=== PATIENT | female | born 1955 | race Caucasian/White ===

== ENCOUNTER 2017-09-18 09:33 | Observation (INO) | payer OTHER, BC ==
--- NOTE | 2017-09-18 11:20 | PDOC ---
History of Present Illness - General Chief Complaint: Injury Stated Complaint: HEAD INJURY Time Seen by Provider: 09/18/17 10:07 History Source: Patient Exam Limitations: No Limitations - History of Present Illness Initial Comments: 09/18/17 11:15 CHIEF COMPLAINT: Mechanical fall down 3 steps, hitting left side of head HISTORY OF PRESENT ILLNESS: Patient is a 62-year-old female, history of high blood pressure and MS in remission, high cholesterol reports while at work today was walking carrying a few large objects and fell down approximately 2 steps hitting the left side of her posterior head. Does Not remember how she fell reports that she does not think she lost consciousness denies any dizziness , is shaking but states that the whole entire incident was overwhelming. Patient is ambulatory to the ER, was a palpable raised area to the left occipital area with no open abrasions or lacerations. No bruising. Denies any neck pain. No respiratory difficulty. No neurosensory deficits. MEDS:[ See medication list] ALLERGIES: [Sulfa REVIEW OF SYSTEMS: GENERAL/CONSTITUTIONAL: Awake alert and oriented HEAD, EYES, EARS, NOSE AND THROAT: No change in vision. No facial edema, no bruising. NO active bleeding. Nares intact. Palpable raised area, with no fluctuance or step-off to left occipital. RESPIRATORY: No cough, wheezing, or hemoptysis. CARDIAC: Denies chest pain, no shortness of breathe. MUSCULOSKELETAL: No spinal point tenderness, Good ROM to all four extremeties. NO CVA tenderness. [No] lateral neck pain. GI/: Denies abdominal pain, no nausea or vomiting, no bloody stool, no Hematuria. SKIN : No erythema or bruising noted. No abrasion or lacerations. NEUROLOGIC: No loss of consciousness, no numbness or tingling. PHYSICAL EXAM: GENERAL: Awake and alert and oriented x3. EYES: The pupils are equal, round, and reactive to light, with clear, conjunctiva. Good extraocular movement. No nystagmus NOSE: No nasal trauma . Midface stable HEAD: Palpable non bruised raised area to left occipital area with no fluctuance , no step offs. MOUTH: Teeth intact. EARS: The ear canals and tympanic membranes are normal without trauma. No drainage. NECK: No Lower cervical C-spine tenderness, no pain with chin to chest. CHEST: The lungs are clear without crackles, or wheezes. No subcutaneous emphysema. No crepitus. HEART: Heart is regular rhythm, with normal S1 and S2, no murmurs. ABDOMEN: The abdomen is soft and nontender with normal bowel sounds. There is no guarding or rebound. MUSCULOSKELETAL: No spinal point tenderness. No bruising or erythema. Pelvis stable. RECTAL: Patient refused. EXTREMITIES: Extremities are normal. No visible traumatic injury. NEUROLOGICAL:Mental status: The patient is oriented x3. No Generalized headache , Romberg [-] Cranial nerves: Cranial nerves II through XII are intact Motor: The upper extremities are 5 over 5 in all muscle groups. The lower extremities are 5 over 5 in all muscle groups. Sensation: Sensation is intact to light touch throughout. Cerebellar: Incfbl-[id number] is normal in both upper extremities. Heel-knee- sommers is normal in both lower extremities. Reflexes: 2+ and symmetric in the upper and lower extremities. Gait: Normal. Heel and toe walking are normal. Tandem gait is normal. SKIN: Without erythema or bruising. No abrasions or lacerations. Raised area to the left occipital 1 09/18/17 12:40 Past History - Past Medical History Allergies/Adverse Reactions: Allergies Allergy/AdvReac Type Severity Reaction Status Date / Time Sulfa (Sulfonamide Allergy Verified 09/18/17 09:42 Antibiotics) Home Medications: Ambulatory Orders Citalopram Hydrobromide [Celexa -] 10 mg PO DAILY 08/03/16 Ezetimibe [Zetia] 10 mg PO DAILY 08/03/16 Hydrochlorothiazide [Hctz -] 12.5 mg PO DAILY 08/03/16 Labetalol HCl 100 mg PO DAILY 08/03/16 Rosuvastatin Calcium [Crestor] 10 mg PO DAILY 08/03/16 Cancer: Yes (H/O OVARIAN) COPD: No HTN: Yes Hypercholesterolemia: Yes - Surgical History Abdominal Surgery: Yes (OVARIAN CA DEBULKING SX, HERNIA REPAIR) Appendectomy: Yes Lung Surgery: Yes (GRANULOMA) - Suicide/Smoking/Psychosocial Hx Smoking History: Never smoked Hx Alcohol Use: No Drug/Substance Use Hx: No Substance Use Type: None *Physical Exam - Vital Signs Last Vital Signs Temp Pulse Resp BP Pulse Ox 98.3 F 76 18 146/79 97 09/18/17 09:37 09/18/17 09:37 09/18/17 09:37 09/18/17 09:37 09/18/17 09:37 ED Treatment Course - RADIOLOGY Radiology Studies Ordered: Category Date Time Status CERVICAL SPINE CT W/O CONTR [CT] Stat CT Scan 09/18/17 11:[address] WITHOUT CONTRAST [CT] Stat CT Scan 09/18/17 11:00 Taken Medical Decision Making - Medical Decision Making 09/18/17 11:19 A/P: Patient here for evaluation status post fall palpable raised area to left occipital area, patient with no other injury no other complaints no bruising, lacerations, erythema or edema. No open areas. Will send patient for CT scan of head based upon mechanism and clinical correlation. 09/18/17 12:42 CT scan demonstrated a subarachnoid hemorrhage, spoke to Dr. Ornelas, patient to be admitted. Patients primary care doctor does not have privileges at [facility]. Patient to be admitted, transferred to [facility]. Saline lock, CBC, CMP, PT, PTT, INR ordered. Tylenol ordered. 09/18/17 13:38 Patient admitted to inpatient services under Dr. Polk consult for Dr. Peterson, patient admitted to [facility] under for admission. *DC/Admit/Observation/Transfer Diagnosis at time of Disposition: Fall (on) (from) other stairs and steps, initial encounter Traumatic subarachnoid hemorrhage Qualifiers: Encounter type: initial encounter - Discharge Dispostion Admit: Yes - Referrals Referrals: Albino Zurita [Primary Care Provider] - - Patient Instructions - Post Discharge Activity
[2017-09-18] MEDS ORDERED: ACETAMINOPHEN 500 MG TABLET (FP) PO ONE (12:49)
[2017-09-18] MEDS ORDERED: ACETAMINOPHEN 500 MG TABLET (FP) ONE (13:10)
[2017-09-18 14:10] LABS: BASOPHIL 0.6 % (0-2.0); EOSINOPHIL 0.5 % (0-4.5); MCH 31.2 pg (25.7-33.7); MCHC 33.8 g/dl (32.0-36.0); MEAN CELL VOLUME 92.2 fl (80-96); MEAN PLT VOLUME 6.7 fl (7.5-11.1); NEUTROPHILS 86.8 % (42.8-82.8); PLATELET COUNT 252 K/MM3 (134-434); WHITE BLOOD COUNT 11.3 K/mm3 (4.0-10.0)
[2017-09-18 14:39] LABS: INR 1.04 (0.82-1.09); PROTHROMBIN TIME (PATIENT) 11.7 SEC (9.98-11.88)
[2017-09-18 14:42] LABS: ACTIVATED PTT 28.3 SECONDS (26.9-34.4)
[2017-09-18 14:46] LABS: ALBUMIN 3.4 g/dl (3.4-5.0); ANION GAP 6 (8-16); CALCIUM 8.7 mg/dL (8.5-10.1); CO2 27 mmol/L (21-32); GLUCOSE,RANDOM 124 mg/dL (74-106)
[2017-09-18 14:49] LABS: ALK PHOS 98 U/L (45-117); BILIRUBIN,TOTAL 0.4 mg/dL (0.2-1.0); CREATININE 1.3 mg/dL (0.55-1.02); SGOT/AST 19 U/L (15-37); SGPT/ALT 22 U/L (12-78); TOT PROT 6.7 g/dl (6.4-8.2)
--- NOTE | 2017-09-18 15:39 | PDOC ---
*Physical Exam - Vital Signs Last Vital Signs Temp Pulse Resp BP Pulse Ox 98.3 F 76 18 146/79 97 09/18/17 09:37 09/18/17 09:37 09/18/17 09:37 09/18/17 09:37 09/18/17 09:37 Heart Score/ECG Review - ECG Impressions Comment:: 09/18/17 15:39 Twelve-lead EKG was performed and reviewed by me. There is normal sinus rhythm with a normal rate. Rate of 74 The intervals are normal. There is normal R wave progression Nonspecific T wave abnormality ED Treatment Course - LABORATORY CBC & Chemistry Diagram: 09/18/17 13:40 09/18/17 13:40 - Medications Given in the ED: ED Medications Discontinued Medications Generic Name Dose Route Start Last Admin Trade Name Freq PRN Reason Stop Dose Admin Acetaminophen 1,000 mg 09/18/17 12:49 09/18/17 13:12 Tylenol - PO 09/18/17 12:50 1,000 mg ONCE ONE Administration Medical Decision Making - Medical Decision Making 09/18/17 15:39 The patient was seen and evaluated in conjunction with FULFILLMENT REPRESENTATIVE Andolino under my direct supervision, ancillary studies were reviewed. I independently interviewed and evaluated the patient and I agree with the plan as outlined by FULFILLMENT REPRESENTATIVE Andolino. *DC/Admit/Observation/Transfer Diagnosis at time of Disposition: Fall (on) (from) other stairs and steps, initial encounter Traumatic subarachnoid hemorrhage Qualifiers: Encounter type: initial encounter - Referrals - Patient Instructions - Post Discharge Activity
--- NOTE | 2017-09-18 18:00 | PN ---
Progress Note (short form) - Note Progress Note: NEUROSURGERY CONSUL DICTATED Chart reviewed Pt examined CT reviewed H/o HTN, MS in remission, and ovarian CA was walking carrying a few large objects and fell down hitting the left side of the back of her head. Denies LOC , any dizziness or N/V though initially had some H/A and nausea. Denies any neck pain. PE: AF, VSS HEENT- L parietal cephalohematoma; Neck- supple; Cor- RRR; Lungs- CTA B; And- benign; Ext- no sign of DVT A/A/Ox4 CN- intact; Motor 5/5 without drift; Sensation- intact LT; DTR- 2+; Gait- normal ; cerebellar intact FTN B WBC 11, Hgb 11.9; INR 1.[address]- mild L parietal convexity SAH with no mass effect or shift C spine CT- C5-6 and C6-7 DDD, minimal degenerative spondylolisthesis C3-4 and C5-6; no fx Traumatic SAH L parietal convexity with concussion F/U head CT tomorrow to ascertain stability Regular diet
[2017-09-18] MEDS: LABETALOL HCL 100 MG TABLET (FP) PO SCH (21:14)
[2017-09-18] MEDS ORDERED: HEPARIN NA (PORCINE) 5,000 UNITS/ML 1ML VIAL SQ SCH (22:00)
--- NOTE | 2017-09-19 08:24 | PN ---
Progress Note (short form) - Note Progress Note: NEUROSURGERY Sore all over justin L hip and low back Somewhat dizzy PE: AF, VSS HEENT- L parietal cephalohematoma; Neck- supple; Cor- RRR; Lungs- CTA B; And- benign; Ext- no sign of DVT A/A/Ox4 CN- intact; Motor 5/5 without drift; Sensation- intact LT; DTR- 2+; Gait- normal ; cerebellar intact FTN B Head CT- mild L parietal convexity SAH with no mass effect or shift C spine CT- C5-6 and C6-7 DDD, minimal degenerative spondylolisthesis C3-4 and C5-6; no fx Traumatic SAH L parietal convexity with concussion F/U head CT today to ascertain stability of SAH Regular diet Ls spine and L hip x-rays r/o acute pathology
[2017-09-19 08:34] LABS: BASOPHIL 0.7 % (0-2.0); MCH 31.1 pg (25.7-33.7); MCHC 33.6 g/dl (32.0-36.0); MEAN CELL VOLUME 92.6 fl (80-96); MEAN PLT VOLUME 6.8 fl (7.5-11.1); NEUTROPHILS 69.4 % (42.8-82.8); PLATELET COUNT 220 K/MM3 (134-434); RDW 12.9 % (11.6-15.6); WHITE BLOOD COUNT 5.8 K/mm3 (4.0-10.0)
[2017-09-19 09:05] LABS: ALBUMIN 3.1 g/dl (3.4-5.0); ANION GAP 6 (8-16); CALCIUM 8.5 mg/dL (8.5-10.1); CO2 29 mmol/L (21-32); CREATININE 1.4 mg/dL (0.55-1.02); GLUCOSE,RANDOM 117 mg/dL (74-106); SGOT/AST 15 U/L (15-37); SGPT/ALT 17 U/L (12-78)
[2017-09-19 09:07] LABS: ALK PHOS 90 U/L (45-117); BILIRUBIN,TOTAL 0.6 mg/dL (0.2-1.0)
--- NOTE | 2017-09-19 09:21 | HP ---
Admitting History and Physical - Admission History of Present Illness: 62-year-old female, history of high blood pressure and MS in remission, high cholesterol reports while at work today was walking carrying a few large objects and fell down approximately 2 steps hitting the left side of her posterior head. Does Not remember how she fell reports that she does not think she lost consciousness denies any dizziness, is shaking but states that the whole entire incident was overwhelming. Patient is ambulatory to the ER, was a palpable raised area to the left occipital area with no open abrasions or lacerations. No bruising. Denies any neck pain. No respiratory difficulty. No neurosensory deficits. she feels better today no matute - Past Medical History [employer]: Yes: Multiple Sclerosis. No: CVA Cardiovascular: Yes: HTN, Hyperlipdemia. No: AFIB, CHF Pulmonary: No: COPD Heme/Onc: Yes: Cancer (ovarian). No: Anemia - Past Surgical History Past Surgical History: Yes: Hernia Repair, Oopherectomy - Smoking History Smoking history: Never smoked - Alcohol/Substance Use Hx Alcohol Use: No Home Medications - Allergies Allergies/Adverse Reactions: Allergies Allergy/AdvReac Type Severity Reaction Status Date / Time Sulfa (Sulfonamide Allergy Verified 09/18/17 09:42 Antibiotics) - Home Medications Home Medications: Ambulatory Orders Citalopram Hydrobromide [Celexa -] 10 mg PO DAILY 08/03/16 Ezetimibe [Zetia] 10 mg PO DAILY 08/03/16 Hydrochlorothiazide [Hctz -] 12.5 mg PO DAILY 08/03/16 Labetalol HCl 100 mg PO BID 08/03/16 Cholecalciferol (Vitamin D3) [Vitamin D3] HS 09/18/17 Review of Systems - Review of Systems Cardiovascular: reports: No Symptoms Respiratory: reports: No Symptoms Gastrointestinal: reports: No Symptoms Genitourinary: reports: No Symptoms Musculoskeletal: reports: Back Pain, Other (hip pain) Neurological: reports: Headache (--better today) Physical Examination Vital Signs: Vital Signs Temperature 98.5 F 09/19/17 06:00 Pulse Rate 72 09/19/17 06:00 Respiratory Rate 18 09/19/17 06:00 Blood Pressure 112/59 09/19/17 06:00 O2 Sat by Pulse Oximetry (%) 99 09/19/17 01:22 Cardiovascular: Yes: Regular Rate and Rhythm Respiratory: Yes: Regular, CTA Bilaterally Gastrointestinal: Yes: Normal Bowel Sounds, Soft Peripheral Pulses WNL: No Neurological: Yes: Alert, Oriented, Cran Nerves II-XII Intact Labs: CBC, BMP 09/19/17 08:28 Imaging - Results Cat Scan: Report Reviewed Problem List - Problems (1) Traumatic subarachnoid hemorrhage Assessment/Plan: N/S CONSULT NOTED F/U CT OF HEAD Code(s): S06.6X9A - TRAUM SUBRAC HEM W LOC OF UNSP DURATION, INIT Qualifiers: Encounter type: initial encounter (2) HTN (hypertension) Assessment/Plan: MONITOR BP Code(s): I10 - ESSENTIAL (PRIMARY) HYPERTENSION (3) Fall (on) (from) other stairs and steps, initial encounter Assessment/Plan: XRAY PT Code(s): W10.8XXA - FALL (ON) (FROM) OTHER STAIRS AND STEPS, INITIAL ENCOUNTER
[2017-09-19] MEDS: CHOLECALCIFEROL (VITAMIN D3) 1,000 UNIT TABLET (FP) PO SCH (09:24)
[2017-09-19] MEDS: CITALOPRAM HYDROBROMIDE 10 MG TABLET (FP) PO SCH (09:24)
[2017-09-19] MEDS: HYDROCHLOROTHIAZIDE 12.5 MG CAPSULE (FP) PO SCH (09:24)
[2017-09-19] MEDS: LABETALOL HCL 100 MG TABLET (FP) PO SCH ×2 (09:24→21:14)
[2017-09-19] MEDS: ROSUVASTATIN CA 10 MG TABLET (FP) PO SCH (09:25)
[2017-09-19] MEDS: EZETIMIBE 10 MG TABLET (FP) PO SCH (09:26)
[2017-09-19 09:49] VITALS: BMI 28.7
--- NOTE | 2017-09-19 09:49 | CON.NEP ---
Consult Consult Specialty:: Nephrology Referred by:: Aj Ochoa Reason for Consultation:: Hyponatremia - History of Present Illness Chief Complaint: Admitted post fall History of Present Illness: 62 with a h/o ovarian cancer admitted post fall No syncope Na 134 Drinks gallons of water a day and in addition takes HCTZ 12.5 for years - History Source History Provided By: Patient - Past Medical History Cardio/Vascular: Yes: HTN Pulmonary: Yes: Other (lobectomy found to have a benign granuloma) Reproductive: Yes: Other (ovarain cancer ) - Past Surgical History Past Surgical History: Yes: , Oopherectomy - Alcohol/Substance Use Hx Alcohol Use: Yes (3 glasses wine a day ) - Smoking History Smoking history: Former smoker Have you smoked in the past 12 months: No - Social History Usual Living Arrangement: Other (and daughter) Home Medications - Allergies Allergies/Adverse Reactions: Allergies Allergy/AdvReac Type Severity Reaction Status Date / Time Sulfa (Sulfonamide Allergy Verified 09/18/17 09:42 Antibiotics) - Home Medications Home Medications: Ambulatory Orders Citalopram Hydrobromide [Celexa -] 10 mg PO DAILY 08/03/16 Ezetimibe [Zetia] 10 mg PO DAILY 08/03/16 Hydrochlorothiazide [Hctz -] 12.5 mg PO DAILY 08/03/16 Labetalol HCl 100 mg PO BID 08/03/16 Cholecalciferol (Vitamin D3) [Vitamin D3] HS 09/18/17 Family Disease History - Family Disease History Family Disease History: CA: Mother (cervical) Review of Systems Unable to obtain ROS, reason: feels well Nephrology Consult - Height Height: 5 ft 1 in - Weight Weight: 152 lb 0.2 oz - BMI Body Mass Index (BMI): 28.7 - Lab Results CBC,BMP: CBC, BMP 09/19/17 08:28 09/19/17 08:28 Anion Gap: Anion Gap Anion Gap 6 (8-16) L 09/19/17 08:28 - Imaging Chest X-ray: Report Reviewed - Physical Examination Vital Signs: Vital Signs Temperature 98.8 F 09/19/17 09:22 Pulse Rate 84 09/19/17 09:22 Respiratory Rate 18 09/19/17 09:22 Blood Pressure 118/67 09/19/17 09:22 O2 Sat by Pulse Oximetry (%) 99 09/19/17 01:22 Edema: No Assessment/Plan 62 with HTN bp well controlled on labetalol 100 bid Hyponatremia 134 related most likely to excessive free water intake Though HCTZ can cause Hyponatremia best to DC that She is not edematous Check TSH Told to cut liquids to 1.5 L per day
[2017-09-19] MEDS ORDERED: LABETALOL HCL 100 MG TABLET (FP) PO SCH (10:00)
[2017-09-19 10:17] LABS: FERRITIN 72.466 ng/ml (6.9-282.5)
--- NOTE | 2017-09-19 10:28 | CONS ---
DATE OF CONSULTATION: 09/18/2017 CHIEF COMPLAINT: Status post mechanical fall with left parietal traumatic subarachnoid hemorrhage. REQUESTING: OLAF Diamond, of the emergency department. ORCHARD PRUNER: Eyal Peterson, Neurosurgery. HISTORY OF PRESENT ILLNESS: The patient is a 62-year-old, right-handed female, with history of MS in remission, hypertension, hypercholesterolemia, and ovarian CA in remission, who was carrying several large objects when she fell backwards. She was reaching for a slippery door handle, fell backwards, and hit the back of her head. She hit her head on the left side. She denies any loss of consciousness. She has no dizziness or nausea or vomiting. She initially had some headache and nausea which resolved. She has no significant neck pain or arm symptoms. She has no ataxia. PAST MEDICAL HISTORY: Significant for ovarian CA in remission, MS in remission, hypertension, and hypercholesterolemia. CURRENT MEDICATIONS: Include Celexa, Zetia, hydrochlorothiazide, labetalol, Crestor. ALLERGIES: SULFA. SOCIAL HISTORY: She does not smoke. She drinks alcohol socially. 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 REVIEW OF SYSTEMS: Otherwise negative for other major constitutional, head and neck, cardiovascular, pulmonary, gastrointestinal, genitourinary, endocrinologic, neurological or psychological problem, except for a granuloma on her lung for which she had a procedure done in the past. PHYSICAL EXAMINATION: Vital signs: Temperature is 98.1, blood pressure is 111/60, with pulse rate of 88, O2 saturation is 98% on room air. HEENT: Examination shows a left parietal cephalohematoma. Neck: Supple with full range of motion. She has minimal cervical paraspinal muscle spasm. Coronary: Examination demonstrated a regular rhythm. Lungs: Clear bilaterally. Abdomen: Benign. Extremities: Examination shows no signs of DVT. Neurologic: She is awake, alert and, oriented x4. Cranial nerve examination is intact 2 through 12. Motor examination shows 5/5 strength without drift. Sensory examination is intact to light touch. Deep tendon reflexes are 1+ throughout. There is no pathological long-tract sign. Gait is normal. Cerebellar examination demonstrating intact [id number] examination. LABORATORY: Examination shows a white count of 11.3, hemoglobin is 11.9, platelet count is 252,000. INR is 1.04 and PTT is 28.3. Serum sodium is 134, BUN and creatinine are 30 and 1.3, respectively. LFTs are normal. CT scan of the head demonstrated left parietal cephalhematoma. There is also a left parietal region hyperdensity consistent with traumatic subarachnoid hemorrhage. There is no shift or edema. CT scan of the cervical spine demonstrated reversal in normal cervical lordosis. There is degenerative disk disease at C5-6 and C6-7. There is mild degenerative spondylolisthesis at C3-4 and C5-6. There is no acute fracture. IMPRESSION: 1. Acute left parietal traumatic subarachnoid hemorrhage. 2. Hypertension. 3. History of multiple sclerosis, in remission. 4. Hypercholesterolemia. RECOMMENDATIONS: The patient presented with a mechanical fall. She has no nausea or vomiting, seizure activity, or any other focal neurological deficit. She denies any loss of consciousness. No anticonvulsant is therefore indicated. She has never had any seizure activity anyway. Followup CT scan of the head should be done tomorrow to ascertain stability of the traumatic subarachnoid hemorrhage. She could be put on a regular diet. If the patient develops any neurological symptoms, while hospitalized, a CT scan should be repeated sooner rather than later. I discussed the above findings, as well as the hospitalization plans with the patient at the bedside. All questions were answered. EYAL PETERSON M.D. PATRICK/[id number]
--- NOTE | 2017-09-19 13:02 | EKG ---
Test Reason : Blood Pressure : / mmHG Vent. Rate : 074 BPM Atrial Rate : 074 BPM P-R Int : 124 ms QRS Dur : 078 ms QT Int : 400 ms P-R-T Axes : 014 -04 075 degrees QTc Int : 444 ms NORMAL SINUS RHYTHM NONSPECIFIC T WAVE ABNORMALITY ABNORMAL ECG NO PREVIOUS ECGS AVAILABLE Confirmed by ABEBE GR MD ([id number]) on 09/19/2017 1:02:23 PM Referred By: Confirmed By:ABEBE GR MD
[2017-09-19 16:40] LABS: BASOPHIL 0.7 % (0-2.0); MCH 31.5 pg (25.7-33.7); MCHC 33.9 g/dl (32.0-36.0); MEAN CELL VOLUME 92.9 fl (80-96); MEAN PLT VOLUME 7.3 fl (7.5-11.1); NEUTROPHILS 66.8 % (42.8-82.8); PLATELET COUNT 234 K/MM3 (134-434); RDW 12.9 % (11.6-15.6); WHITE BLOOD COUNT 6.5 K/mm3 (4.0-10.0)
[2017-09-20 06:06] LABS: SERUM IRON 47 ug/dL (27-139); TOTAL IRON BINDING CAPACITY 266 ug/dL (250-450); UIBC 219 ug/dL (118-369)
[2017-09-20] MEDS: HYDROCHLOROTHIAZIDE 12.5 MG CAPSULE (FP) PO SCH (11:04)
[2017-09-20] MEDS: CITALOPRAM HYDROBROMIDE 10 MG TABLET (FP) PO SCH (11:04)
[2017-09-20] MEDS: LABETALOL HCL 100 MG TABLET (FP) PO SCH (11:05)
[2017-09-20] MEDS: CHOLECALCIFEROL (VITAMIN D3) 1,000 UNIT TABLET (FP) PO SCH (11:06)
[2017-09-20] MEDS: EZETIMIBE 10 MG TABLET (FP) PO SCH (11:10)
[2017-09-20] MEDS: ROSUVASTATIN CA 10 MG TABLET (FP) PO SCH (11:10)
[2017-09-20] MEDS ORDERED: CYANOCOBALAMIN (VITAMIN B-12) 1000 MCG/1 ML VIAL IM ONE (11:57)
--- NOTE | 2017-09-20 12:05 | PN ---
Progress Note, Physician Chief Complaint: Fall, Subarachnoid hematoma History of Present Illness: NAD, sitting in chair, self ambulatory, mild soreness around the injury site seen by nephrology and neurosurgery cleared by both to be discharged - Current Medication List Current Medications: Active Medications Cholecalciferol (Vitamin D3 -) 1,000 unit PO DAILY [facility] Last Admin: 09/20/17 11:06 Dose: 1,000 unit Citalopram Hydrobromide (Celexa -) 10 mg PO DAILY [facility] Last Admin: 09/20/17 11:04 Dose: 10 mg Ezetimibe (Zetia -) 10 mg PO DAILY [facility] Last Admin: 09/20/17 11:10 Dose: 10 mg Hydrochlorothiazide (Hctz -) 12.5 mg PO DAILY [facility] Last Admin: 09/20/17 11:04 Dose: 12.5 mg Labetalol HCl (Normodyne -) 100 mg PO BID [facility] Last Admin: 09/20/17 11:05 Dose: 100 mg Rosuvastatin Calcium (Crestor -) 10 mg PO DAILY [facility] Last Admin: 09/20/17 11:10 Dose: 10 mg - Objective Vital Signs: Vital Signs Temperature 98.4 F 09/20/17 06:00 Pulse Rate 79 09/20/17 06:00 Respiratory Rate 18 09/20/17 06:00 Blood Pressure 130/67 09/20/17 06:00 O2 Sat by Pulse Oximetry (%) 99 09/20/17 01:00 Constitutional: Yes: Well Nourished, No Distress, Calm Cardiovascular: Yes: Regular Rate and Rhythm Respiratory: Yes: Regular Gastrointestinal: Yes: Normal Bowel Sounds Musculoskeletal: Yes: WNL Extremities: Yes: WNL Edema: No Peripheral Pulses WNL: Yes Neurological: Yes: Alert, Oriented Psychiatric: Yes: Alert, Oriented Labs: CBC, BMP 09/19/17 15:00 09/19/17 08:28 INR, PTT INR 1.04 (0.82-1.09) 09/18/17 13:40 Problem List - Problems (1) Hyponatremia Assessment/Plan: -dilutional -discontinue hctz -check TSH outpatient with her PCP Dr Carrie Fernandez? in [place] Code(s): E87.1 - HYPO-OSMOLALITY AND HYPONATREMIA (2) Fall (on) (from) other stairs and steps, initial encounter Code(s): W10.8XXA - FALL (ON) (FROM) OTHER STAIRS AND STEPS, INITIAL ENCOUNTER (3) Traumatic subarachnoid hemorrhage Assessment/Plan: -repeat CT head improved -seen by Neurosurgery Code(s): S06.6X9A - TRAUM SUBRAC HEM W LOC OF UNSP DURATION, INIT Qualifiers: Encounter type: initial encounter Assessment/Plan see problem list
[2017-09-20 13:19] VITALS: BP 120/78; PULSE 76; TEMP 98.8
== END 2017-09-20 15:09 | disposition home or self-care (01) ==
LOC: JERFT 09:33 → SUPCPDRO 09:33 → JER 09:33 → UNDOADMOB 13:36 → JERBED 13:36 → INTOOBSV 13:36 → J5S 17:22 → JERBED 17:33
PROVIDERS: ADMIT Family Medicine; ATTEND Family Medicine
PROC: 3E023GC Introduction of Other Therapeutic Substance into Muscle, Percutaneous Approach (ICD-10-PCS; principal; 2017-09-18)
DX: S06.6X9A Traumatic subarachnoid hemorrhage with loss of consciousness of unspecified duration, initial encounter (principal); E87.1 Hypo-osmolality and hyponatremia; I10 Essential (primary) hypertension; G35 Multiple sclerosis; E78.5 Hyperlipidemia, unspecified; Z85.43 Personal history of malignant neoplasm of ovary; Z88.2 Allergy status to sulfonamides; W10.8XXA Fall (on) (from) other stairs and steps, initial encounter; Y93.89 Activity, other specified; Y92.89 Other specified places as the place of occurrence of the external cause; Y99.0 Civilian activity done for income or pay
CPT/HCPCS: 36415; 70450-TC; 71010-TC; 72100-TC; 72125-TC; 73502-TC-LT; 80053; 82607; 82728; 83540; 83550; 85025; 85610; 85730; 93005; 93010; 99284-25; G0378